=== PATIENT | female | born 1970 | race Caucasian/White ===

== ENCOUNTER → 2016-09-23 | Outpatient (CLI) | payer BC ==
[~2016-09-23] MED LIST: CETI10TA10 PO; IBUP1CAP9; MULT-506 PO; NORE1TAB70
--- NOTE | 2016-09-23 14:08 | MAMMOGRAPHY REPORT ---
BILATERAL DIGITAL SCREENING MAMMOGRAM TOMOSYNTHESIS WITH CAD: 09/23/2016 CLINICAL HISTORY: Routine screening. Patient has no complaints. TECHNIQUE: Breast tomosynthesis in addition to standard 2D mammography was performed. Current study was also evaluated with a Computer Aided Detection (CAD) system. COMPARISON: Comparison is made to exams dated: 09/22/2015 mammogram, 09/12/2014 mammogram, 08/14/2013 ma mmogram - [facility], 02/13/2012 mammogram, and 01/27/2011 mammogram. BREAST COMPOSITION: The tissue of both breasts is extremely dense, which lowers the sensitivity of mammography. FINDINGS: No suspicious masses, calcifications, or areas of architectural distortion are noted in e ither breast. There has been no significant interval change compared to prior exams. IMPRESSION: ACR BI-RADS CATEGORY 1: NEGATIVE There is no mammographic evidence of malignancy. A 1 year screening mammogram is recommended. The p atient will receive written notification of the results. Approximately 10% of breast cancers are not detected with mammography. A negative mammographic repor t should not delay biopsy if a clinically suggestive mass is present. Sudha Echevarria M.D. /:09/23/2016 12:32:37 Stone Lathe Operator: Dary HERRERA)(Ryann), [facility] letter sent: Normal 1/2 BI-RADS Code: ACR BI-RADS Category 1: Negative
== END | disposition home or self-care (01) ==
LOC: C.MAMM 09:24
PROVIDERS: ATTEND Obstetrics & Gynecology
DX: Z12.31 Encounter for screening mammogram for malignant neoplasm of breast (principal)

== ENCOUNTER → 2016-11-21 | Outpatient (CLI) | payer BC | END | disposition home or self-care (01) | LOC: C.PAPS 12:52 | PROVIDERS: ATTEND Obstetrics & Gynecology | DX: Z01.419 Encounter for gynecological examination (general) (routine) without abnormal findings (principal) ==

== ENCOUNTER → 2017-02-03 | Outpatient (CLI) | payer BC | END | disposition home or self-care (01) | LOC: C.LAB1850 09:15 | PROVIDERS: ATTEND Obstetrics & Gynecology | DX: Z78.0 Asymptomatic menopausal state (principal) ==

== ENCOUNTER → 2017-09-26 | Day surgery (SDC) | payer OTHER ==
[2017-09-15 13:54] VITALS: Ht 174 cm; Wt 90.0 kg
[~2017-09-26] VITALS: Ht 174 cm; Wt 90.0 kg
[~2017-09-26] MED LIST changes: +ACETAMINOPHEN 325 MG TAB PO PRN; +ATROPINE SULFATE 0.1 MG/ML 5ML SYR IV PRN; +BUPIVACAINE 0.25% 30 ML VIAL ONE; +CEFAZOLIN 2000MG IV PUSH 15 ML IV SCH; +EpHEDrine SULFATE INJ 50 MG/ML AMP IV PRN; +FENTANYL CITRATE INJ 50 MCG/1 ML 2 ML VIAL ONE; +FLUO10CA48 PO; -IBUP1CAP9; +LACTATED RINGER'S 1000ML 1,000 ML IV SCH; +LIDOCAINE HCL 1% 20 ML VIAL ONE; +LIDOCAINE HCL 2% 2 ML VIAL (20MG/ML) ONE; +LIDOCAINE/EPINEPHRINE 1% 20 ML VIAL ONE; +LO LOESTRIN PO; +METOCLOPRAMIDE HCL INJ 5 MG/ML 2 ML VIAL IV PRN; +MIDAZOLAM HCL 1 MG/ML 2ML VIAL ONE; +MONT1TAB3 PO; -MULT-506 PO; -NORE1TAB70; +ONDANSETRON INJ 2 MG/ML 2 ML VIAL IV PRN; +ONDANSETRON INJ 2 MG/ML 2 ML VIAL ONE; +OXYCODONE/ACETAMINOPHEN 5-325 TAB PO PRN; +PROPOFOL IV EMULSION 10 MG/ML 20 ML VIAL IV ONE; +SODIUM CHLORIDE 0.9% 1000ML 1,000 ML IV SCH
--- NOTE | 2017-09-26 08:26 | History & Physical Bridge - SC ---
H&P Re-Evaluation Bridge Note: I have examined the patient, reviewed the History & Physical and in the interval since the performance of the History & Physical I have noted the following changes of clinical significance: No changes noted
--- NOTE | 2017-09-26 09:11 | [facility] Post Operative Brief Note ---
Immediate Operative Summary Operative Date Sep 26, 2017. Pre-Operative Diagnosis Right Anterior Shoulder Lipoma Post-Operative Diagnosis Same as Pre-op Procedure(s) Performed Right anterior shoulder lipoma excision Surgeon Commercial Real Estate Appraiser Surgeon(s) Jovanni BARRON Estimated Blood Loss 2ML Findings Consistent with Post-Op Diagnosis Specimens A.Right anterior shoulder lipoma Anesthesia Type MAC Complication(s) none Disposition Disposition: Recovery Room / PACU
[2017-09-26 09:19] VITALS: TEMP 36.7
--- NOTE | 2017-09-26 09:22 | Discharge Instructions ---
Discharge Instructions Date of Service Sep 26, 2017. Admission Reason for Admission: Lipoma Right Shoulder Discharge Discharge Diagnosis / Problem: lipoma right shoulder Discharge Goals Goal(s): Decrease discomfort, Improve function Activity Recommendations Activity Limitations: as noted below ACTIVITY RECOMMENDATIONS: __Normal activities _x_No bending, lifting or straining __No driving __Driving allowed when you are off pain medications _x_Walking permitted __You should have help at home for ___ days DRESSINGS: __No dressings required _x_Keep dressings dry/in place until first office visit __Remove dressings ___ and leave dressings off _x_Apply ice _2__ days __Remove dressings and reapply garment __Apply antibiotic ointment (Bacitracin, Neosporin, etc) to wounds 3-4 times/ day for 10 days BATHING: _x_Keep dressings dry _x_Sponge bathing permitted __Showering permitted _x_No swimming, hot tubs or soaking in a tub MEDICATIONS: Resume previous medications unless instructed otherwise by your surgeon. _x_Do not use aspirin, Motrin, Advil or Ibuprofen as these may promote bleeding. Please use Tylenol. _x_Prescription(s) provided: pain medication provided at your last office visit OTHER INSTRUCTIONS: __Record drain output 2-3 times per day SPECIAL CARE INSTRUCTIONS: * It is normal to have a mild fever after surgery. If your temperature is higher than 101.5 degrees F, please call the office at [phone]. * Constipation is a typical side effect of pain medication. An over-the- counter stool softener will help relieve this. * Leaking around surgical drains may occur and should not cause concern. Sometimes these drains become clogged. If this happens, remove the bulb and milk the clot out of the tube, then replace the bulb. * Drainage from wounds after liposuction is normal and should be expected. Garments will become soiled. You should protect furniture and bedding. This drainage should mostly subside within 2-3 days. Leave garments in place unless instructed to remove them. * If you have unusual drainage from a wound or are concerned you have an infection or have any questions or concerns, please call the office at [phone]. FOLLOW UP VISIT: If not already scheduled, please call the office, , when you return home after surgery to schedule an appointment to be seen in _2__ days. . Current Hospital Diet Patient's current hospital diet: Discharge Diet Recommended Diet: Regular Diet Procedures Procedures Performed: Right anterior shoulder lipoma excision Pending Studies Studies pending at discharge: yes List of pending studies: pathology Medical Emergencies . Who to Call and When: Medical Emergencies: If at any time you feel your situation is an emergency, please call 911 immediately. . Non-Emergent Contact Non-Emergency issues call your: Primary Care Provider, Surgeon . "Provider Documentation" section prepared by Lupe Morgan. . VTE Core Measure Inpt VTE Proph given/why not?: SCD's [place] Drug Monitoring Program Search Results: no issues identified
--- NOTE | 2017-09-26 09:50 | Anesthesia Progress Nt - [facility] ---
Anesthesia Post Op Note Date & Time Sep 26, 2017 at 09:49 Vital Signs Pain Intensity: 0 Vital Signs Past 12 Hours Date Time Temp Pulse Resp B/P (MAP) Pulse Ox O2 Delivery O2 Flow Rate FiO2 09/26/17 09:19 36.7 68 12 117/76 (90) 100 Room Air 09/26/17 07:31 36.5 76 16 137/87 (104) 99 Room Air Notes Mental Status: alert / awake / arousable, participated in evaluation Pt Amnestic to Procedure: Yes Nausea / Vomiting: adequately controlled Pain: adequately controlled Airway Patency, RR, SpO2: stable & adequate BP & HR: stable & adequate Hydration State: stable & adequate Anesthetic Complications: no major complications apparent
[2017-09-26 10:05] VITALS: BP 121/79; PULSE 53; O2SAT 99
--- NOTE | 2017-09-26 10:49 | OPERATIVE REPORT ---
DATE OF OPERATION: 09/26/2017 PREOPERATIVE DIAGNOSIS: Right shoulder lipoma. POSTOPERATIVE DIAGNOSIS: Same. PROCEDURE: Excision of right shoulder lipoma. SURGEON: Dr. Yenny Levin. FINE ARTS MODEL: Lupe Morgan PA-C. ANESTHESIA: Local with sedation. COMPLICATIONS: None. INDICATION FOR THE PROCEDURE: The patient is a 47-year-old female with an enlarging lipoma of the right anterior shoulder, who desired excision. BRIEF DESCRIPTION OF THE PROCEDURE: Risks, benefits, and alternatives of the procedure were explained to the patient who agreed and signed consent. She was identified and marked in the preoperative holding area. She was brought to the operating room where she was positioned supine and placed under sedation without incident. Surgical site was prepped and draped sterilely. A time-out procedure was performed. The planned incision and the surgical site were anesthetized using a mixture of 0.25% Marcaine plain and 1% lidocaine with epinephrine. Once this was properly anesthetized, a 15-blade scalpel was used to make the incision into the superficial dermis. The incision was deepened using electrocautery. Just deep to the subcutaneous tissue, a large reasonably well circumscribed lipoma was encountered. It was able to be sharply dissected with Metzenbaum scissor combined with blunt digital dissection until it was removed in its entirety. It measured 6 x 6 cm. Hemostasis was achieved with electrocautery. Wound base was injected with a local anesthetic. Wound was reapproximated using 3-0 Vicryl interrupted deep dermal sutures and 4-0 Monocryl running subcuticular suture. Dermabond was applied. A dry dressing was placed. The procedure was tolerated well. The patient was awakened and transferred to recovery in satisfactory condition. Specimen, which was located within the subcutaneous tissue and superficial to the muscle, was sent to the pathology lab for evaluation. I attest to the content of the Intraoperative Record and any orders documented therein. Any exception s are noted below.
== END | disposition home or self-care (01) ==
LOC: X.SURG 07:15
PROVIDERS: ATTEND Plastic Surgery
DX: D17.21 Benign lipomatous neoplasm of skin and subcutaneous tissue of right arm (principal); F32.9 Major depressive disorder, single episode, unspecified; Z98.890 Other specified postprocedural states; Z98.818 Other dental procedure status

== ENCOUNTER → 2017-09-29 | Outpatient (CLI) | payer OTHER ==
[~2017-09-29] MED LIST changes: -ACETAMINOPHEN 325 MG TAB PO PRN; -ATROPINE SULFATE 0.1 MG/ML 5ML SYR IV PRN; -BUPIVACAINE 0.25% 30 ML VIAL ONE; -CEFAZOLIN 2000MG IV PUSH 15 ML IV SCH; -EpHEDrine SULFATE INJ 50 MG/ML AMP IV PRN; -FENTANYL CITRATE INJ 50 MCG/1 ML 2 ML VIAL ONE; -LACTATED RINGER'S 1000ML 1,000 ML IV SCH; -LIDOCAINE HCL 1% 20 ML VIAL ONE; -LIDOCAINE HCL 2% 2 ML VIAL (20MG/ML) ONE; -LIDOCAINE/EPINEPHRINE 1% 20 ML VIAL ONE; -METOCLOPRAMIDE HCL INJ 5 MG/ML 2 ML VIAL IV PRN; -MIDAZOLAM HCL 1 MG/ML 2ML VIAL ONE; -ONDANSETRON INJ 2 MG/ML 2 ML VIAL IV PRN; -ONDANSETRON INJ 2 MG/ML 2 ML VIAL ONE; -OXYCODONE/ACETAMINOPHEN 5-325 TAB PO PRN; -PROPOFOL IV EMULSION 10 MG/ML 20 ML VIAL IV ONE; -SODIUM CHLORIDE 0.9% 1000ML 1,000 ML IV SCH
--- NOTE | 2017-10-02 08:07 | MAMMOGRAPHY REPORT ---
BILATERAL DIGITAL SCREENING MAMMOGRAM TOMOSYNTHESIS WITH CAD: 09/29/2017 CLINICAL HISTORY: Routine screening. Patient has no complaints. TECHNIQUE: Breast tomosynthesis in addition to standard 2D mammography was performed. Current study was also evaluated with a Computer Aided Detection (CAD) system. COMPARISON: Comparison is made to exams dated: 09/23/2016 mammogram, 09/22/2015 mammogram, 09/12/2014 ma mmogram, 08/14/2013 mammogram - [facility], 02/13/2012 mammogram, and 01/27/2011 mammogr am. BREAST COMPOSITION: The tissue of both breasts is extremely dense, which lowers the sensitivity of m ammography. FINDINGS: There are stable faint punctate microalcifications in the superior left breast. No suspic ious mass, architectural distortion or cluster of new, suspicious microcalcifications is seen. IMPRESSION: ACR BI-RADS CATEGORY 1: NEGATIVE There is no mammographic evidence of malignancy. A 1 year screening mammogram is recommended. The pa tient will receive written notification of the results. Approximately 10% of breast cancers are not detected with mammography. A negative mammographic report should not delay biopsy if a clinically suggestive mass is present. Tomasa Ortiz M.D. ay/:09/29/2017 16:01:02 [employer]: Anika MUNROE(Isabel)(M), [facility] letter sent: Normal 1/2 BI-RADS Code: ACR BI-RADS Category 1: Negative
== END | disposition home or self-care (01) ==
LOC: C.MAMM 09:16
PROVIDERS: ATTEND Obstetrics & Gynecology
DX: Z12.31 Encounter for screening mammogram for malignant neoplasm of breast (principal)

== ENCOUNTER 2017-11-13 18:56 | Emergency (ER) | payer OTHER ==
[~2017-11-13] VITALS: Ht 174 cm; Wt 91.4 kg
[2017-11-13 19:18] VITALS: TEMP 37.1; Ht 174 cm; Wt 91.4 kg
[2017-11-13 20:09] LABS: BASO % 0.2 %; BASO ABS # 0.03 K/uL (0-0.2); EOS % 0.6 %; EOS ABS # 0.07 K/uL (0-0.5); HEMATOCRIT 40.5 % (37-47); HEMOGLOBIN 14.2 g/dL (12.0-16.0); IG# 0.03 K/uL (0.00-0.02); LYMPH % 15.9 %; LYMPH ABS # 1.92 K/uL (1.2-3.4); MEAN CELL VOLUME 87.5 fL (80-100); MEAN CORPUSCULAR HEMOGLOBIN 30.7 pg (25-34); MEAN CORPUSCULAR HGB CONC 35.1 g/dl (32-36); MEAN PLATELET VOLUME 9.9 fL (7.4-10.4); MONO % 6.4 %; MONO ABS # 0.77 K/uL (0.11-0.59); NEUT % 76.7 %; NEUT ABS # 9.29 K/uL (1.4-6.5); PLATELET COUNT 274 K/uL (130-400); RED CELL DISTRIBUTION WIDTH CV 14.3 % (11.5-14.5); RED CELL DISTRIBUTION WIDTH SD 45.9 fL (36.4-46.3); WHITE BLOOD COUNT 12.11 K/uL (4.8-10.8)
--- NOTE | 2017-11-13 20:09 | EMERGENCY ROOM VISIT NOTE ---
History Report prepared by Laura: Nasir Jara Under the Supervision of: Dr. Travon Samuels M.D. First contact with patient: 20:04 Chief Complaint: REFERRED BY DOCTOR Stated Complaint: SORE THRAOT,POSSIBLE PERITONSILLAR History of Present Illness The patient is a 47 year old female who presents to the Emergency Room with complaints of a worsening, right-sided, sorethroat beginning 5 days ago. The patient states she was evaluated in a walk-in clinic yesterday and tested negative for strep throat. She reports she was told to return if her symptoms worsened. The patient notes she woke up this morning and developed pain that spread to her right ear, difficulty swallowing, and pain when swallowing. She states she went to the walk-in clinic again today and was told to come to the ED for a possible peritonsillar abscess. The patient denies fevers and being placed on antibiotics or oral steroids. She reports she was told it was most likely viral. Source of History: patient Onset: five days ago Position: throat (right side) Quality: other (sore) Timing: worsening Associated Symptoms: No fevers Note: Associated symptoms: right ear pain, difficultly swallowing, pain when swallowing Review of Systems See HPI for pertinent positives and negatives. A total of ten systems were reviewed and were otherwise negative. Past Medical & Surgical Medical Problems: (1) No pertinent past medical history Family History Patient reports no known family medical history. Social History Smoking Status: Never Smoker Marital Status: Occupation Status: unemployed Current/Historical Medications Scheduled Amoxicillin & Pot Clavulanate (Augmentin 875-125 mg), 875 MG PO BID Fluoxetine Hcl (Fluoxetine Hcl), 10 MG PO QAM Montelukast Sod (Montelukast Sodium), 10 MG PO QAM Norethindrone Acetate-Ethinyl (Lo Loestrin Fe), 1 TAB PO DAILY Scheduled PRN Cetirizine Hcl (Zyrtec), 10 MG PO QAM PRN for Allergy Symptoms Allergies Coded Allergies: No Known Allergies (Unverified , 09/26/17) Physical Exam Vital Signs Date Time Temp Pulse Resp B/P (MAP) Pulse Ox O2 Delivery O2 Flow Rate FiO2 11/13/17 21:53 94 22 152/97 97 11/13/17 20:46 83 16 180/102 99 Room Air 11/13/17 19:18 37.1 99 18 175/106 98 Room Air Physical Exam Physical Exam GENERAL: She is oriented to person, place, and time. She appears well- developed and well-nourished. She does not appear distressed. ____ HENT: Exam performed. Head: Normocephalic and atraumatic. Right Ear: External ear normal. No mastoid tenderness. Left Ear: External ear normal. No mastoid tenderness. Mouth/Throat: The oropharynx is clear and moist. No trismus in the jaw. No dental abscesses. Right sided pharyngeal erythema with right sided pharyngeal excudates. Her uvula is very mildly deviated to the left. No obvious MUSHROOM PRESS OPERATOR. No hot potato voice. No stridor. ____ EYES: Conjunctivae and EOM are normal. Pupils are equal, round, and reactive to light. Right eye exhibits no discharge. Left eye exhibits no discharge. No scleral icterus. ____ NECK: Normal range of motion. Neck supple. No JVD present. No spinous process tenderness present. No carotid bruit present. No rigidity. No tracheal deviation and normal range of motion present. No Brudzinski's sign and no Kernig 's sign noted. ____ CV: Normal rate, regular rhythm, normal heart sounds and intact distal pulses. There is no peripheral edema. Palpable radial pulses bue. ____ PULM/CHEST: Effort normal and breath sounds normal. No respiratory distress. No stridor. She has no wheezes. She has no rales. Chest Wall: She exhibits no tenderness. ____ ABD: The abdomen is soft. Bowel sounds are normal. She has no distension. No mass is present. There is no tenderness. There is no rebound, no guarding, no Jj's sign and no tenderness at McBurney's point. Rovsig negative MUSC/SKEL: Normal range of motion. There is no peripheral edema, tenderness or deformity. LYMPH: No cervical adenopathy. ____ NEURO: She is alert and oriented to person, place, and time. She has normal strength. No cranial nerve deficit or sensory deficit. Coordination and gait normal. GCS eye subscore is 4. GCS verbal subscore is 5. GCS motor subscore is 6. Cerebellar tests wnl. ____ SKIN: Skin is warm and dry. She is not diaphoretic. ____ PSYCH: She has a normal mood and affect. Her behavior is normal. Judgment and thought content normal. ____ Medical Decision & Procedures Laboratory Results 11/13/17 19:25 Red Blood Count 4.63, Mean Corpuscular Volume 87.5, Mean Corpuscular Hemoglobin 30.7, Mean Corpuscular Hemoglobin Concent 35.1, Mean Platelet Volume 9.9, Neutrophils (%) (Auto) 76.7, Lymphocytes (%) (Auto) 15.9, Monocytes (%) (Auto) 6.4, Eosinophils (%) (Auto) 0.6, Basophils (%) (Auto) 0.2, Neutrophils # (Auto) 9.29, Lymphocytes # (Auto) 1.92, Monocytes # (Auto) 0.77, Eosinophils # (Auto) 0.07, Basophils # (Auto) 0.03 11/13/17 19:25 Test 11/13/17 19:25 White Blood Count 12.11 K/uL (4.8-10.8) Red Blood Count 4.63 M/uL (4.2-5.4) Hemoglobin 14.2 g/dL (12.0-16.0) Hematocrit 40.5 % (37-47) Mean Corpuscular Volume 87.5 fL (80-100) Mean Corpuscular Hemoglobin 30.7 pg (25-34) Mean Corpuscular Hemoglobin Concent 35.1 g/dl (32-36) Platelet Count 274 K/uL (130-400) Mean Platelet Volume 9.9 fL (7.4-10.4) Neutrophils (%) (Auto) 76.7 % Lymphocytes (%) (Auto) 15.9 % Monocytes (%) (Auto) 6.4 % Eosinophils (%) (Auto) 0.6 % Basophils (%) (Auto) 0.2 % Neutrophils # (Auto) 9.29 K/uL (1.4-6.5) Lymphocytes # (Auto) 1.92 K/uL (1.2-3.4) Monocytes # (Auto) 0.77 K/uL (0.11-0.59) Eosinophils # (Auto) 0.07 K/uL (0-0.5) Basophils # (Auto) 0.03 K/uL (0-0.2) RDW Standard Deviation 45.9 fL (36.4-46.3) RDW Coefficient of Variation 14.3 % (11.5-14.5) Immature Granulocyte % (Auto) 0.2 % Immature Granulocyte # (Auto) 0.03 K/uL (0.00-0.02) Anion Gap 9.0 mmol/L (3-11) Est Creatinine Clear Calc Drug Dose 93.3 ml/min Estimated GFR () 90.0 Estimated GFR (Non- 77.7 BUN/Creatinine Ratio 7.9 (10-20) Calcium Level 9.0 mg/dl (8.5-10.1) Total Bilirubin 0.7 mg/dl (0.2-1) Aspartate Amino Transf (AST/SGOT) 19 U/L (15-37) Alanine Aminotransferase (ALT/SGPT) 21 U/L (12-78) Alkaline Phosphatase 107 U/L (45-117) Total Protein 7.2 gm/dl (6.4-8.2) Albumin 3.5 gm/dl (3.4-5.0) Globulin 3.7 gm/dl (2.5-4.0) Albumin/Globulin Ratio 0.9 (0.9-2) Laboratory results reviewed by me Medications Administered Medications (Trade) Dose Ordered Sig/Cristina Route Start Time Stop Time Status Last Admin Dose Admin Ampicillin Sodium/ Sulbactam Sodium 3000 mg/Sodium Chloride 108 ml @ 200 mls/hr ONE ONCE IV 11/13/17 20:30 11/13/17 21:02 DC 11/13/17 21:19 200 MLS/HR Dexamethasone Sodium Phosphate 10 mg/Syringe 2.5 ml @ 1 mls/min NOW STAT IV 11/13/17 20:28 11/13/17 20:31 DC 11/13/17 20:28 1 MLS/MIN Sodium Chloride 1,000 ml @ 999 mls/hr Q1H1M STAT IV 11/13/17 20:28 11/13/17 21:28 DC 11/13/17 20:44 999 MLS/HR Ketorolac Tromethamine (Toradol Inj) 15 mg NOW STAT IV 11/13/17 21:09 11/13/17 21:10 DC 11/13/17 21:19 15 MG ED Course 2005: The patient was evaluated in room C09. A complete history and physical exam was performed. No obvious peritonsillar abscess on exam. 2019: I discussed the patient's case with CHERI Pollard. He and I both agree that given the patient has no fever, trismus, or obvious MUSHROOM PRESS OPERATOR, and a mildly elevated WBC the patient is stable for follow-up in his office tomorrow. I did discuss and offer to get a CT of the neck. He states that is unnecessary at this time, and the patient should be given IV fluids, antibiotics, and Decadron. He will follow up with the patient tomorrow at 8AM. 2027: Ordered Sodium Chloride 1000 ml @ 999 mls/hr IV, Dexamethasone Sodium Phosphate 10 mg/Syringe 2.5ml @ 1 mls/min IV 2029: Ordered Ampicillin Sodium/Sulbactam Sodium 3000mg/ Sodium Chloride 108 ml @ 200 mls/hr IV 2108: Ordered Toradol Inj 15mg IV 2127: Vital signs stable. The patient reports feeling better after Toradol injection, Decadron injection, IV fluids and IV antibiotics. The patient is maintaining an clear airway and has not experienced respiratory distress. The case management specialist gave the patient ENT follow-up. The patient agrees to the ENT follow -up. Discharge with p.o. antibiotics DISCHARGE - Plan of care discussed with patient and questions answered. The patient was given both verbal and printed discharge instructions. The patient verbalized understanding and ability to comply. The patient is to seek outpatient follow up as noted in the discharge instructions. The patient verbalized understanding and ability to comply. The patient is discharged in stable condition. The patient was instructed to return for worsening symptoms. Medical Decision 2005: The patient was evaluated in room C09. A complete history and physical exam was performed. No obvious peritonsillar abscess on exam. 2019: I discussed the patient's case with CHERI Pollard. He and I both agree that given the patient has no fever, trismus, or obvious MUSHROOM PRESS OPERATOR, and a mildly elevated WBC the patient is stable for follow-up in his office tomorrow. I did discuss and offer to get a CT of the neck. He states that is unnecessary at this time, and the patient should be given IV fluids, antibiotics, and Decadron. He will follow up with the patient tomorrow at 8AM. 2027: Ordered Sodium Chloride 1000 ml @ 999 mls/hr IV, Dexamethasone Sodium Phosphate 10 mg/Syringe 2.5ml @ 1 mls/min IV 2029: Ordered Ampicillin Sodium/Sulbactam Sodium 3000mg/ Sodium Chloride 108 ml @ 200 mls/hr IV 2108: Ordered Toradol Inj 15mg IV 2127: Vital signs stable. The patient reports feeling better after Toradol injection, Decadron injection, IV fluids and IV antibiotics. The patient is maintaining an clear airway and has not experienced respiratory distress. The case management specialist gave the patient ENT follow-up. The patient agrees to the ENT follow -up. Discharge with p.o. antibiotics DISCHARGE - Plan of care discussed with patient and questions answered. The patient was given both verbal and printed discharge instructions. The patient verbalized understanding and ability to comply. The patient is to seek outpatient follow up as noted in the discharge instructions. The patient verbalized understanding and ability to comply. The patient is discharged in stable condition. The patient was instructed to return for worsening symptoms. Medication Reconcilliation Current Medication List: was personally reviewed by me Blood Pressure Screening Patient's blood pressure: Elevated blood pressure Blood pressure disposition: Elevated BP felt to be situational Consults Time Called: 2017 Consulting Physician: Dr. Shaffer, ENT Returned Call: 2018 I discussed the patient's case with Dr. Shaffer, ENT. He and I both agree that given the patient has no fever, trismus, or obvious MUSHROOM PRESS OPERATOR, and a mildly elevated WBC. Due to this, the patient is stable for follow-up in his office tomorrow. I did discuss and offer to get a CT of the neck. He states that is unnecessary at this time, and the patient should be given IV fluids, antibiotics, and Decadron. He will follow up with the patient tomorrow at 8AM. Impression Primary Impression: Pharyngitis Scribe Attestation The scribe's documentation has been prepared under my direction and personally reviewed by me in its entirety. I confirm that the note above accurately reflects all work, treatment, procedures, and medical decision making performed by me. The chart was completed utilizing [employer] voice recognition software. Grammatical errors, random word insertions, pronoun errors, and incomplete sentences are an occasional consequence of this system due to software limitations, ambient noise, and hardware issues. Any formal questions or concerns about the content, text, or information contained within the body of this dictation should be directly addressed to the physician for clarification. Departure Information Dispostion Home / Self-Care Prescriptions Amoxicillin & Pot Clavulanate (Augmentin 875-125 mg) 1 Tab Tab 875 MG PO BID for 7 Days, #14 TAB Prov: Travon Samuels M.D. 11/13/17 Referrals Deepika Giordano M.D. (PCP) Forms HOME CARE DOCUMENTATION FORM, IMPORTANT VISIT INFORMATION, WORK / SCHOOL INSTRUCTIONS Patient Instructions [facility], Sore Throats Self Care Additional Instructions Call Dr. Shaffer's office, ENT, tomorrow at 8 AM to be seen tomorrow morning. Problem Qualifiers Primary Impression: Pharyngitis Pharyngitis/tonsillitis etiology: unspecified etiology Qualified Codes: J02.9 - Acute pharyngitis, unspecified
[2017-11-13 20:28] LABS: ALBUMIN 3.5 gm/dl (3.4-5.0); CREATININE 0.88 mg/dl (0.60-1.20); POTASSIUM 3.6 mmol/L (3.5-5.1)
[2017-11-13] MEDS ORDERED: DEXAMETHASONE INJ 10 MG in SYRINGE 0 ML IV STA (20:28)
[2017-11-13] MEDS ORDERED: SODIUM CHLORIDE 0.9% 1000ML 1,000 ML IV STA (20:28)
[2017-11-13] MEDS ORDERED: AMPICILLIN/SULBACTAM SOD INJ 3,000 MG in SODIUM CHLORIDE 0.9% 100ML 100 ML IV ONE (20:30)
[2017-11-13 20:31] LABS: TOTAL PROTEIN 7.2 gm/dl (6.4-8.2)
[2017-11-13] MEDS ORDERED: DEXAMETHASONE **PF** INJ 10 MG/ML VIAL ONE (20:41)
[2017-11-13] MEDS ORDERED: NORETAB29 PO (20:47)
[2017-11-13] MEDS ORDERED: SNG10 PO (20:47)
[2017-11-13] MEDS ORDERED: FLUO10TA3 PO (20:47)
[2017-11-13] MEDS ORDERED: KETOROLAC TROMETHAMINE 30 MG/ML VIAL IV STA (21:09)
[2017-11-13] MEDS ORDERED: AMOX875T PO (21:19)
[2017-11-13 21:53] VITALS: BP 152/97; PULSE 94; O2SAT 97
== END 2017-11-13 22:00 | disposition home or self-care (01) ==
LOC: C.EDB 18:57 → C.EDC 22:00
DX: J02.9 Acute pharyngitis, unspecified (principal); Z79.899 Other long term (current) drug therapy

== ENCOUNTER → 2017-11-22 | Outpatient (CLI) | payer OTHER ==
[~2017-11-22] MED LIST changes: -FLUO10CA48 PO; +FLUO10TA3 PO; -LO LOESTRIN PO; -MONT1TAB3 PO; +NORETAB29 PO; +SNG10 PO
== END | disposition home or self-care (01) ==
LOC: C.PAPS 11:20
PROVIDERS: ATTEND Obstetrics & Gynecology
DX: Z12.4 Encounter for screening for malignant neoplasm of cervix (principal)